=== PATIENT | male | born 1985 | race Hispanic/Latino ===

== ENCOUNTER 2017-06-08 14:23 | Emergency (ER) | payer BC ==
[2017-06-08 15:43] LABS: Bilirubin Negative (Negative); Blood, Urine Negative (Negative); Glucose, Urine (Dipstick) Negative (Negative); Ketone, Urine Negative (Negative); Nitrite Negative (Negative); Protein, Urine (Dipstick) Negative (Neg-Trace)
--- NOTE | 2017-06-08 15:47 | RAD ---
EXAM: TWO VIEWS LUMBAR SPINE 06/08/17 HISTORY: Injured low back on tractor two weeks ago. Pain worsening last night. COMPARISON: None. FINDINGS: Two views lumbar spine: Five lumbar type vertebral bodies. Vertebral body height is maintained. Disc spaces adequately preser lexi. No fracture or malalignment. IMPRESSION: Unremarkable two views lumbar spine. POS: [facility]
== END 2017-06-08 16:09 | disposition home or self-care (01) ==
LOC: ERS 14:23
DX: M54.5 Low back pain (principal)
CPT/HCPCS: 72100; 81003

== ENCOUNTER 2019-05-10 15:21 | Emergency (ER) | payer BC ==
[2019-05-10 16:41] LABS: #Basophils 0.1 thou/uL (0.0-0.2); #Eosinphils 0.1 thou/uL (0.0-0.7); #Monocytes 0.6 thou/uL (0.11-0.59); #Neutrophils 7.9 thou/uL (1.40-6.50); %Basophils 0.5 % (0.0-1.0); %Eosinophils 0.9 % (0.0-10.0); %Lymphocytes 25.5 % (21.0-51.0); %Monocytes 5.3 % (0.0-10.0); %Neutrophils 67.8 % (42.0-75.0); Hemoglobin 15.3 g/dL (14.0-18.0); Mean Corpuscular HGB CONC 34.2 g/dL (32.0-36.0); Mean Corpuscular Hemoglobin 30.4 pg (27.0-31.0); Mean Platelet Volume 6.9 fL (7.4-10.4); Platelet Count 273 thou/uL (130-400); RBC Distribution Width 11.8 % (11.5-14.5); Red Blood Cell (RBC) Count 5.04 mill/uL (4.70-6.10); White Blood Cell (WBC) Count 11.6 thou/uL (4.8-10.8)
[2019-05-10 17:00] LABS: ALT (SGPT) 33 U/L (8-55); AST (SGOT) 16 U/L (5-34); Albumin 4.5 g/dL (3.5-5.0); Alkaline Phosphatase 87 U/L (40-110); Anion Gap 10 mmol/L (10-20); BUN (Urea Nitrogen) 11 mg/dL (8.9-20.6); Calc. Creatinine Clearance 0 mL/min (70-130); Calcium 9.4 mg/dL (7.8-10.44); Carbon Dioxide 31 mmol/L (22-29); Chloride 106 mmol/L (98-107); Estimated GFR-MDRD 85; Globulin 2.9 g/dL (2.4-3.5); Glucose 85 mg/dL (70-105); Lipase 8 U/L (8-78); Potassium 4.1 mmol/L (3.5-5.1); Protein, Total 7.4 g/dL (6.0-8.3); Sodium 143 mmol/L (136-145)
--- NOTE | 2019-05-10 17:26 | ULT ---
SONOGRAM RIGHT UPPER QUADRANT: 05/10/19 HISTORY: Right upper quadrant pain. FINDINGS: Gallbladder has a normal appearance. Common duct is 0.4 cm. The liver unremarkable without focal mass or intrahepatic biliary dilatation. No free fluid. IMPRESSION: Normal exam. POS: [facility]
[2019-05-10] MEDS ORDERED: Ibuprofen 800 MG TAB ONE (18:40)
[2019-05-10] MEDS ORDERED: Milk Of Magnesia 30 ML UDCUP ONE (18:40)
[2019-05-10] MEDS ORDERED: Lidocaine Viscous Sol 2% 15 ml UD Cup ONE (18:40)
[2019-05-10 19:27] LABS: Bilirubin Negative (Negative); Blood, Urine Negative (Negative); Clarity Clear (Clear); Glucose, Urine (Dipstick) Normal (Negative); Leukocyte Negative Leu/uL (Negative); Nitrite Negative (Negative); Protein, Urine (Dipstick) 10 mg/dL (Neg-Trace)
[2019-05-10 19:27] LABS: Troponin I Less than 0.010 ng/mL (< 0.028)
== END 2019-05-10 20:20 | disposition home or self-care (01) ==
LOC: ERS 15:21
DX: R10.9 Unspecified abdominal pain (principal); R10.817 Generalized abdominal tenderness
CPT/HCPCS: 36415; 76705; 80053; 81003; 83690; 84484; 85025; 93005; 94760